=== PATIENT | male | born 1980 | race African-American/Black ===

== ENCOUNTER 2020-11-17 19:27 | Emergency (ER) | payer OTHER ==
[~2020-11-17] VITALS: Ht 175.3 cm; Wt 83.9 kg
[~2020-11-17 19:27] MED LIST: ALA; B-12250 MCG PO; BCAA PO; CLA1000 MG PO; FLAXSEED OIL1000 MG PO; GLUCOSAMINE &1 EAC1 PO; GLUTAMINE500 MG PO; METHYLPRED IV; MULTIVITAMINS PO; SOLU-MEDRO1000 MG/1 IV; [UNRECOGNIZED DRUG - OTHER]
[2020-11-17] MEDS ORDERED: IBUPROFEN 800800 M1 PO (20:48)
[2020-11-17 20:53] VITALS: BP 112/62
== END 2020-11-17 20:53 | disposition home or self-care (01) ==
LOC: M.ERS 19:27
DX: S63.681A Other sprain of right thumb, initial encounter (principal); G35 Multiple sclerosis; X50.9XXA Other and unspecified overexertion or strenuous movements or postures, initial encounter; Y93.89 Activity, other specified; Y92.89 Other specified places as the place of occurrence of the external cause; Y99.0 Civilian activity done for income or pay

== ENCOUNTER 2021-01-29 13:22 | Emergency (ER) | payer OTHER ==
[~2021-01-29] VITALS: Ht 175.3 cm; Wt 81.7 kg
[~2021-01-29 13:22] MED LIST changes: +IBUPROFEN 800800 M1 PO
[2021-01-29] MEDS ORDERED: AMOXICILLIN 50500 MG PO (15:01)
[2021-01-29] MEDS ORDERED: ZOFRAN ODT4 MG PO (15:01)
[2021-01-29 15:07] VITALS: BP 138/81
== END 2021-01-29 15:08 | disposition home or self-care (01) ==
LOC: M.ERS 13:22
DX: S00.93XA Contusion of unspecified part of head, initial encounter (principal); Z20.822 Contact with and (suspected) exposure to COVID-19; J02.0 Streptococcal pharyngitis; Z98.890 Other specified postprocedural states; V59.9XXA Occupant (driver) (passenger) of pick-up truck or van injured in unspecified traffic accident, initial encounter; Y93.89 Activity, other specified; Y92.89 Other specified places as the place of occurrence of the external cause; Y99.8 Other external cause status